=== PATIENT | male | born 1950 | race Caucasian/White ===

== ENCOUNTER 2019-07-28 13:42 | Emergency (ER) | payer OTHER ==
[2019-07-28 14:34] LABS: Absolute Lymphocytes (CBC) 0.7 K/uL (0.7-4.9); Basophils % 0.9 % (0-1.3); Hematocrit 38.1 % (39.6-49.0); MPV 7.2 fL (7.6-11.3); RBC Red Blood Cell Count 4.13 M/uL (4.33-5.43)
[2019-07-28 14:37] LABS: Protime INR 1.05
[2019-07-28] MEDS ORDERED: CLOPIDOGREL 75 MG TABLET ONE (14:37)
[2019-07-28] MEDS ORDERED: NA CHLORIDE 0.9% 1,000 ML ONE (14:37)
[2019-07-28] MEDS ORDERED: ASPIRIN EC 81 MG TAB PO ONE (14:37)
[2019-07-28] MEDS ORDERED: FOLIC ACID 5 MG/ML VIAL ONE (14:38)
--- NOTE | 2019-07-28 14:39 | ER ---
Nurse's Notes [facility] Name: Christian Dave Age: 69 yrs Sex: Male : 1950 Arrival Date: 07/28/2019 Time: 13:45 Bed 20 Private MD: Unknown, Unknown Diagnosis: Headache;Aphasia;Transient cerebral ischemic attack, unspecified;Essential (primary) hypertension Presentation: 07/28 14:00 Presenting complaint: Sudden headache, numbness of tongue and lips, and slurred speech hb while eating lunch at 1230 today. Now c/o tingling of tongue and headache. Transition of care: patient was not received from another setting of care. Onset of symptoms was July 28, 2019 at 12:30. Risk Assessment: Do you want to hurt yourself or someone else? Patient reports no desire to harm self or others. Initial Sepsis Screen: Does the patient meet any 2 criteria? No. Patient's initial sepsis screen is negative. Does the patient have a suspected source of infection? No. Patient's initial sepsis screen is negative. Care prior to arrival: None. 14:00 Method Of Arrival: Ambulatory hb 14:00 Acuity: EDDIE 3 hb Triage Assessment: 16:51 Headache History: The patient has had previous headaches and this one is similar to mg2 previous episodes. General: Appears in no apparent distress. comfortable, Behavior is calm, cooperative. Pain: Also complains of no other associated symptoms. Historical: - Allergies: 14:06 No Known Allergies; hb - Home Meds: 14:06 Aspirin Oral [Active]; gabapentin 300 mg oral cap 1 cap 3 times per day [Active]; hb escitalopram oxalate 10 mg oral tab 1 tab once daily [Active]; Novolin 70/30 100 unit/mL (70-30) subcutaneous susp [Active]; meloxicam oral oral [Active]; tamsulosin 0.4 mg oral cp24 [Active]; fenofibrate 120 mg oral tab [Active]; lisinopril 10 mg Oral tab [Active]; - PMHx: 14:06 Hypertension; hb - Immunization history:: Adult Immunizations up to date. - Social history:: Smoking status: Patient/guardian denies using tobacco. - Ebola Screening: : No symptoms or risks identified at this time. - Family history:: not pertinent. Screenin:35 Abuse screen: Denies threats or abuse. Denies injuries from another. Nutritional mg2 screening: No deficits noted. Tuberculosis screening: No symptoms or risk factors identified. Fall Risk IV access (20 points). 14:44 Patient has been NPO before screening. The patient is alert, able to follow commands. mg2 The patient does not exhibit slurred or garbled speech The patient is not exhibiting difficulty speaking. The patient does not exhibit difficulty understanding words. The patient is able to swallow own secretions with no drooling or need for suction. Patient tolerated one teaspoon of water. No drooling, immediate coughing, gurgling, or clearing of the throat was noted. The patient tolerated 90mL of water. No drooling, immediate coughing, gurgling, or clearing of the throat was noted. The patient passed the bedside swallow screening. Oral medications may be given as ordered. Contact Physician for further diet orders. Provider notified of bedside swallow screening results: Blue Hernandez MD. Assessment: 14:07 Reassessment: CODE STROKE CALLED. PT TO CT WITH CONSTANTINO HERNANDEZ. hb 14:11 Reassessment: patient sent to ct scan via wheelchair. mg2 14:30 Reassessment: seen by ed provider. mg2 14:31 Reassessment: ekg done. mg2 14:32 Reassessment: bedside cxr done. mg2 14:56 General: Appears in no apparent distress. comfortable, Behavior is calm, cooperative. mg2 Pain: Complains of pain in right jew, head Pain does not radiate. Pain currently is 5 out of 10 on a pain scale. Quality of pain is described as aching, Pain began gradually, 2 hours ago. Is intermittent. Neuro: Level of Consciousness is awake, alert, obeys commands, Oriented to person, place, time, situation. Cardiovascular: Capillary refill < 3 seconds Patient's skin is warm and dry. Respiratory: Airway is patent Respiratory effort is even, unlabored, Respiratory pattern is regular, symmetrical. GI: No signs and/or symptoms were reported involving the gastrointestinal system. : No signs and/or symptoms were reported regarding the genitourinary system. EENT: Reports numbness and tingling in the tongue \T\ 1230, now resolved. . Derm: Skin is intact, is healthy with good turgor, Skin is pink, warm \T\ dry. normal. Musculoskeletal: Circulation, motion, and sensation intact. Capillary refill < 3 seconds. 16:03 Reassessment: report called to MARY trejo of [facility]. mg2 16:54 Reassessment: patient informed about the waiting time for ems to come and pick her up. mg2 17:29 Reassessment: patient complained of headache and blood pressure is elevated. provider mg2 informed and addressed. 17:59 Reassessment: report given to [facility]. patient in good condition. iv in place. mg2 Vital Signs: 14:02 BP 183 / 75; Pulse 66; Resp 16; Temp 98.2; Pulse Ox 100% on R/A; Weight 122.47 kg; hb Height 5 ft. 8 in. (172.72 cm); Pain 5/10; 14:34 BP 151 / 78; Pulse 68; Resp 17; Pulse Ox 96% on R/A; Pain 0/10; mg2 16:50 BP 169 / 72; Pulse 62; Resp 18; Pulse Ox 100% on R/A; mg2 17:12 Pulse 62; Resp 18; Pulse Ox 97% on R/A; mg2 17:27 BP 182 / 87; Pulse 63; Resp 18; Pulse Ox 100% on R/A; mg2 14:02 Body Mass Index 41.05 (122.47 kg, 172.72 cm) hb NIH Stroke Scale Scores: 14:20 NIHSS Score: 0 mg2 14:39 NIHSS Score: 0 [facility] ED Course: 13:45 Patient arrived in ED. ag5 13:45 Unknown, Unknown is Private Physician. ag5 13:53 Patient's name was called from ER lobby. No response. hb 14:02 Triage completed. hb 14:06 Arm band placed on. hb 14:16 Blue Hernandez MD is Attending Physician. scott 14:25 CT Stroke Brain w/o Contrast In Process Unspecified. EDMS 14:25 Inserted saline lock: 20 gauge in right forearm, using aseptic technique. mg2 14:32 Kane Fox, MARY is Primary Nurse. mg2 14:34 No provider procedures requiring assistance completed. mg2 14:48 EKG done, by criminal records technician. reviewed by Blue Hernandez MD. sm3 14:59 Patient has correct armband on for positive identification. monitor and storage bin tender on. Pulse mg2 ox on. NIBP on. Door closed. Warm blanket given. 15:00 initiated a transfer with Eliane Jim RN from the [facility] transfer center. eb 15:[address] Kirkland the neurologist ammonia box tender for [facility] with Dr. Hernandez for eb patient transfer consultation. 15:09 CT Head Angio In Process Unspecified. EDMS 15:35 administrative approval given by Eliane Jim RN/ Patient has been accepted to [facility] bed 2442/ Dr. Echavarria has accepted the patient in transfer. report to be called to the transfer center at [phone]. 15:36 Stroke CXR 1 View In Process Unspecified. EDMS 17:30 Assisted to bathroom. mg2 18:00 Patient transferred, IV remains in place. mg2 Administered Medications: 14:44 Drug: NS 0.9% 1000 ml Route: IV; Rate: 1 bolus; Site: right forearm; mg2 15:52 Follow up: Response: No adverse reaction; IV Status: Completed infusion; IV Intake: mg2 1000ml 14:44 Drug: foLIC Acid 1 mg Route: IVPB; Site: right forearm; mg2 15:51 Follow up: Response: No adverse reaction; IV Status: Completed infusion mg2 14:44 Drug: Aspirin 81 mg Route: PO; mg2 15:51 Follow up: Response: No adverse reaction mg2 14:44 Drug: PlaVIX 75 mg Route: PO; mg2 15:51 Follow up: Response: No adverse reaction mg2 16:42 Drug: Lipitor 40 mg Route: PO; mg2 17:00 Follow up: Response: No adverse reaction mg2 17:27 Drug: Lopressor 25 mg Route: PO; mg2 17:35 Follow up: Response: No adverse reaction mg2 17:28 Drug: Tylenol 650 mg Route: PO; mg2 17:40 Follow up: Response: No adverse reaction mg2 17:29 Not Given (out of stock): Zocor 80 mg PO once mg2 Point of Care Testing: Blood Glucose: 14:30 Blood Glucose: 108 mg/dL; mg2 Ranges: Intake: 15:52 IV: 1000ml; Total: 1000ml. mg2 Outcome: 14:39 ER care complete, transfer ordered by scott 18:03 Transferred by ground EMS to [facility], Transfer form completed. mg2 18:03 Condition: stable 18:03 Instructed on the need for transfer, Demonstrated understanding of instructions. 18:04 Patient left the ED. mg2 NIH Stroke Scale - NIH Stroke Score Date: 07/28/2019 Time: 14:20 Total Score = 0 1a. Level of Consciousness (LOC) - 0(Alert) 1b. Level of Consciousness (LOC) (Year \T\ Age) - 0(Both) 1c. LOC Commands (Open \T\ Closes Eyes/Dirt Bike Mechanic) - 0(Both) 2. Best Gaze (Lateral Gaze Paresis) - 0(Normal) 3. Visual Field Loss - 0(No visual loss) 4. Facial Palsy - 0(Normal) 5a. Left Arm: Motor (10-second hold) - 0(No drift) 5b. Right Arm: Motor (10-second hold) - 0(No drift) 6a. Left Leg: Motor (5-second hold - always test supine) - 0(No drift) 6b. Right Leg: Motor (5-second hold - always test supine) - 0(No drift) 7. Limb Ataxia (finger/nose \T\ heel/phelps - test with eyes open) - 0(Absent) 8. Sensory Loss (pinprick arms/legs/face) - 0(Normal) 9. Best Language: Aphasia (description/naming/reading) - 0(No aphasia) 10. Dysarthria (speech clarity - read or repeat words) - 0(Normal) 11. Extinction and Inattention (visual/tactile/auditory/spatial/personal) - 0(No abnormality) Initials: [facility] [place] NIH Stroke Scale - NIH Stroke Score Date: 07/28/2019 Time: 14:39 Total Score = 0 1a. Level of Consciousness (LOC) - 0(Alert) 1b. Level of Consciousness (LOC) (Year \T\ Age) - 0(Both) 1c. LOC Commands (Open \T\ Closes Eyes/Dirt Bike Mechanic) - 0(Both) 2. Best Gaze (Lateral Gaze Paresis) - 0(Normal) 3. Visual Field Loss - 0(No visual loss) 4. Facial Palsy - 0(Normal) 5a. Left Arm: Motor (10-second hold) - 0(No drift) 5b. Right Arm: Motor (10-second hold) - 0(No drift) 6a. Left Leg: Motor (5-second hold - always test supine) - 0(No drift) 6b. Right Leg: Motor (5-second hold - always test supine) - 0(No drift) 7. Limb Ataxia (finger/nose \T\ heel/phelps - test with eyes open) - 0(Absent) 8. Sensory Loss (pinprick arms/legs/face) - 0(Normal) 9. Best Language: Aphasia (description/naming/reading) - 0(No aphasia) 10. Dysarthria (speech clarity - read or repeat words) - 0(Normal) 11. Extinction and Inattention (visual/tactile/auditory/spatial/personal) - 0(No abnormality) Initials: scott Signatures: Dispatcher [employer] Blue Childs MD MD cha Baxter, Heather RN RN hb Maria D Richmond Michele, RN RN mg2 Juana Vickers3 Humphrey Bain 5 Corrections: (The following items were deleted from the chart) 17:28 16:48 Zocor 80 mg PO mg2 mg2
--- NOTE | 2019-07-28 14:40 | EDPHYS ---
Physician Documentation [facility] Name: Christian Dave Age: 69 yrs Sex: Male : 1950 Arrival Date: 07/28/2019 Time: 13:45 Bed 20 Private MD: Unknown, Unknown ED Physician Blue Hernandez HPI: 07/28 14:31 This 69 yrs old Male presents to ER via Ambulatory with complaints of scott Numbness Of Mouth, Headache, High Blood Pressure. 14:31 This 69 yrs old Male presents to ER via Ambulatory with complaints of scott Numbness Of Mouth, Headache, High Blood Pressure. 14:31 The patient complains of pain to the right buddhism. scott 14:32 The patient describes the headache as aching. Onset: The symptoms/episode scott began/occurred 2 hour(s) ago. The patient's problem is reported as. The patient's problem is reported as dysphasia. Onset: The symptoms/episode began/occurred 2 hour(s) ago. Duration: This was a single incident. Context: the episode(s) was witnessed, by family, . The symptoms are alleviated by nothing. The symptoms are aggravated by nothing. Associated signs and symptoms: The patient has no apparent associated signs or symptoms. Historical: - Allergies: 14:06 No Known Allergies; hb - Home Meds: 14:06 Aspirin Oral [Active]; gabapentin 300 mg oral cap 1 cap 3 times per day [Active]; hb escitalopram oxalate 10 mg oral tab 1 tab once daily [Active]; Novolin 70/30 100 unit/mL (70-30) subcutaneous susp [Active]; meloxicam oral oral [Active]; tamsulosin 0.4 mg oral cp24 [Active]; fenofibrate 120 mg oral tab [Active]; lisinopril 10 mg Oral tab [Active]; - PMHx: 14:06 Hypertension; hb - Immunization history:: Adult Immunizations up to date. - Social history:: Smoking status: Patient/guardian denies using tobacco. - Ebola Screening: : No symptoms or risks identified at this time. - Family history:: not pertinent. ROS: 14:32 Constitutional: Negative for fever, chills, and weight loss, Eyes: Negative for injury, scott pain, redness, and discharge, ENT: Negative for injury, pain, and discharge, Neck: Negative for injury, pain, and swelling, Cardiovascular: Negative for chest pain, palpitations, and edema, Respiratory: Negative for shortness of breath, cough, wheezing, and pleuritic chest pain, Abdomen/GI: Negative for abdominal pain, nausea, vomiting, diarrhea, and constipation, Back: Negative for injury and pain, : Negative for injury, bleeding, discharge, and swelling, MS/Extremity: Negative for injury and deformity, Skin: Negative for injury, rash, and discoloration, Psych: Negative for depression, anxiety, suicide ideation, homicidal ideation, and hallucinations, Allergy/Immunology: Negative for hives, rash, and allergies, Endocrine: Negative for neck swelling, polydipsia, polyuria, polyphagia, and marked weight changes, Hematologic/Lymphatic: Negative for swollen nodes, abnormal bleeding, and unusual bruising. 14:32 Neuro: Positive for headache, speech changes, of the . Exam: 14:32 Radiologist reports: na [facility] 14:32 Constitutional: This is a well developed, well nourished patient who is awake, alert, and in no acute distress. Head/Face: Normocephalic, atraumatic. Eyes: Pupils equal round and reactive to light, extra-ocular motions intact. Lids and lashes normal. Conjunctiva and sclera are non-icteric and not injected. Cornea within normal limits. Periorbital areas with no swelling, redness, or edema. ENT: Nares patent. No nasal discharge, no septal abnormalities noted. Tympanic membranes are normal and external auditory canals are clear. Oropharynx with no redness, swelling, or masses, exudates, or evidence of obstruction, uvula midline. Mucous membranes moist. Neck: Trachea midline, no thyromegaly or masses palpated, and no cervical lymphadenopathy. Supple, full range of motion without nuchal rigidity, or vertebral point tenderness. No Meningismus. Chest/axilla: Normal chest wall appearance and motion. Nontender with no deformity. No lesions are appreciated. Cardiovascular: Regular rate and rhythm with a normal S1 and S2. No gallops, murmurs, or rubs. Normal PMI, no JVD. No pulse deficits. Respiratory: Lungs have equal breath sounds bilaterally, clear to auscultation and percussion. No rales, rhonchi or wheezes noted. No increased work of breathing, no retractions or nasal flaring. Abdomen/GI: Soft, non-tender, with normal bowel sounds. No distension or tympany. No guarding or rebound. No evidence of tenderness throughout. Back: No spinal tenderness. No costovertebral tenderness. Full range of motion. Male : Normal genitalia with no discharge or lesions. Skin: Warm, dry with normal turgor. Normal color with no rashes, no lesions, and no evidence of cellulitis. MS/ Extremity: Pulses equal, no cyanosis. Neurovascular intact. Full, normal range of motion. Neuro: Awake and alert, GCS 15, oriented to person, place, time, and situation. Cranial nerves II-XII grossly intact. Motor strength 5/5 in all extremities. Sensory grossly intact. Cerebellar exam normal. Normal gait. Psych: Awake, alert, with orientation to person, place and time. Behavior, mood, and affect are within normal limits. Vital Signs: 14:02 BP 183 / 75; Pulse 66; Resp 16; Temp 98.2; Pulse Ox 100% on R/A; Weight 122.47 kg; hb Height 5 ft. 8 in. (172.72 cm); Pain 5/10; 14:34 BP 151 / 78; Pulse 68; Resp 17; Pulse Ox 96% on R/A; Pain 0/10; mg2 16:50 BP 169 / 72; Pulse 62; Resp 18; Pulse Ox 100% on R/A; mg2 17:12 Pulse 62; Resp 18; Pulse Ox 97% on R/A; mg2 17:27 BP 182 / 87; Pulse 63; Resp 18; Pulse Ox 100% on R/A; mg2 14:02 Body Mass Index 41.05 (122.47 kg, 172.72 cm) NIH Stroke Scale Scores: 14:20 NIHSS Score: 0 mg2 14:39 NIHSS Score: 0 scott MDM: 14:16 Patient medically screened. scott 14:34 Data reviewed: vital signs, nurses notes, lab test result(s), EKG, radiologic studies. scott 14:40 ED course: spmptoms fully resolved, not a tpa candidate. scott 07/28 14:18 Order name: Basic Metabolic Panel; Complete Time: 16:05 scott 07/28 14:18 Order name: CBC with Diff; Complete Time: 14:39 scott 07/28 14:18 Order name: Protime (+inr); Complete Time: 14:39 scott 07/28 14:18 Order name: Ptt, Activated; Complete Time: 14:39 07/28 14:18 Order name: LFT's; Complete Time: 16:05 [facility] 07/28 14:18 Order name: Magnesium; Complete Time: 16:05 [facility] 07/28 14:18 Order name: CT Stroke Brain w/o Contrast 07/28 14:18 Order name: Stroke CXR 1 View 07/28 14:18 Order name: NT PRO-BNP; Complete Time: 16:05 scott 07/28 14:18 Order name: Troponin (emerg Dept Use Only); Complete Time: 16:05 scott 07/28 14:18 Order name: CT Head Angio 07/28 14:18 Order name: EKG; Complete Time: 14:19 [facility] 07/28 14:18 Order name: Accucheck; Complete Time: 14:33 [facility] 07/28 14:18 Order name: Cardiac monitoring; Complete Time: 14:33 [facility] 07/28 14:18 Order name: EKG - Nurse/Tech; Complete Time: 14:33 scott 07/28 14:18 Order name: IV Saline Lock; Complete Time: 14:33 [facility] 07/28 14:18 Order name: Labs collected and sent; Complete Time: 14:33 [facility] 07/28 14:18 Order name: NPO; Complete Time: 14:33 [facility] 07/28 14:18 Order name: O2 Per Protocol; Complete Time: 14:33 [facility] 07/28 14:18 Order name: O2 Sat Monitoring; Complete Time: 14:34 07/28 14:18 Order name: Stroke Swallow Screen; Complete Time: 14:45 [facility] Administered Medications: 14:44 Drug: NS 0.9% 1000 ml Route: IV; Rate: 1 bolus; Site: right forearm; mg2 15:52 Follow up: Response: No adverse reaction; IV Status: Completed infusion; IV Intake: mg2 1000ml 14:44 Drug: foLIC Acid 1 mg Route: IVPB; Site: right forearm; mg2 15:51 Follow up: Response: No adverse reaction; IV Status: Completed infusion mg2 14:44 Drug: Aspirin 81 mg Route: PO; mg2 15:51 Follow up: Response: No adverse reaction mg2 14:44 Drug: PlaVIX 75 mg Route: PO; mg2 15:51 Follow up: Response: No adverse reaction mg2 16:42 Drug: Lipitor 40 mg Route: PO; mg2 17:00 Follow up: Response: No adverse reaction mg2 17:27 Drug: Lopressor 25 mg Route: PO; mg2 17:35 Follow up: Response: No adverse reaction mg2 17:28 Drug: Tylenol 650 mg Route: PO; mg2 17:40 Follow up: Response: No adverse reaction mg2 17:29 Not Given (out of stock): Zocor 80 mg PO once mg2 Point of Care Testing: Blood Glucose: 14:30 Blood Glucose: 108 mg/dL; mg2 Ranges: Critical Glucose Levels:Adult <50 mg/dl or >400 mg/dl <40 mg/dl or >180 mg/dl Disposition: 07/28/19 14:39 Transfer ordered to [facility]. Diagnosis are Headache, Aphasia, Transient cerebral ischemic attack, unspecified, Essential (primary) hypertension. - Reason for transfer: Higher level of care. - Accepting physician is to [facility], neuro. - Condition is Fair. - Problem is new. - Symptoms have improved. NIH Stroke Scale - NIH Stroke Score Date: 07/28/2019 Time: 14:20 Total Score = 0 1a. Level of Consciousness (LOC) - 0(Alert) 1b. Level of Consciousness (LOC) (Year \T\ Age) - 0(Both) 1c. LOC Commands (Open \T\ Closes Eyes/Watch Engine Operator) - 0(Both) 2. Best Gaze (Lateral Gaze Paresis) - 0(Normal) 3. Visual Field Loss - 0(No visual loss) 4. Facial Palsy - 0(Normal) 5a. Left Arm: Motor (10-second hold) - 0(No drift) 5b. Right Arm: Motor (10-second hold) - 0(No drift) 6a. Left Leg: Motor (5-second hold - always test supine) - 0(No drift) 6b. Right Leg: Motor (5-second hold - always test supine) - 0(No drift) 7. Limb Ataxia (finger/nose \T\ heel/phelps - test with eyes open) - 0(Absent) 8. Sensory Loss (pinprick arms/legs/face) - 0(Normal) 9. Best Language: Aphasia (description/naming/reading) - 0(No aphasia) 10. Dysarthria (speech clarity - read or repeat words) - 0(Normal) 11. Extinction and Inattention (visual/tactile/auditory/spatial/personal) - 0(No abnormality) Initials: mg2 NIH Stroke Scale - NIH Stroke Score Date: 07/28/2019 Time: 14:39 Total Score = 0 1a. Level of Consciousness (LOC) - 0(Alert) 1b. Level of Consciousness (LOC) (Year \T\ Age) - 0(Both) 1c. LOC Commands (Open \T\ Closes Eyes/Watch Engine Operator) - 0(Both) 2. Best Gaze (Lateral Gaze Paresis) - 0(Normal) 3. Visual Field Loss - 0(No visual loss) 4. Facial Palsy - 0(Normal) 5a. Left Arm: Motor (10-second hold) - 0(No drift) 5b. Right Arm: Motor (10-second hold) - 0(No drift) 6a. Left Leg: Motor (5-second hold - always test supine) - 0(No drift) 6b. Right Leg: Motor (5-second hold - always test supine) - 0(No drift) 7. Limb Ataxia (finger/nose \T\ heel/phelps - test with eyes open) - 0(Absent) 8. Sensory Loss (pinprick arms/legs/face) - 0(Normal) 9. Best Language: Aphasia (description/naming/reading) - 0(No aphasia) 10. Dysarthria (speech clarity - read or repeat words) - 0(Normal) 11. Extinction and Inattention (visual/tactile/auditory/spatial/personal) - 0(No abnormality) Initials: [facility] Signatures: Dispatcher [employer] EDBlue Coleman MD MD cha Baxter, Heather, RN RN Kane Fox RN RN mg2 Corrections: (The following items were deleted from the chart) 14:41 14:39 07/28/2019 14:39 Transfer ordered to [facility]. scott Diagnosis is Headache; Aphasia; Transient cerebral ischemic attack, unspecified. Reason for transfer: Higher level of care. Accepting physician is to [facility], neuro. Condition is Fair. Problem is new. Symptoms have improved. scott 18:04 14:41 07/28/2019 14:39 Transfer ordered to [facility]. mg2 Diagnosis is Headache; Aphasia; Transient cerebral ischemic attack, unspecified; Essential (primary) hypertension. Reason for transfer: Higher level of care. Accepting physician is to [facility], neuro. Condition is Fair. Problem is new. Symptoms have improved. scott
[2019-07-28 14:52] LABS: Albumin 3.6 g/dL (3.4-5.0); Bilirubin Direct 0.1 mg/dL (0-0.2); Bilirubin Total 0.4 mg/dL (0.2-1.0); Magnesium 2.1 mg/dL (1.8-2.4); Potassium 3.5 mmol/L (3.5-5.1); Protein, Total 7.3 g/dL (6.4-8.2); Troponin (Emerg Dept Use Only) 0.06 ng/mL (0.0-0.045)
[2019-07-28] MEDS ORDERED: ATORVASTATIN 40 MG TAB PO ONE (17:00)
[2019-07-28] MEDS ORDERED: ACETAMINOPHEN 325 MG TABLET ONE (17:24)
[2019-07-28] MEDS ORDERED: METOPROLOL TAR 25 MG TAB ONE (17:24)
--- NOTE | 2019-07-28 19:54 | RAD REPORT ---
EXAM DESCRIPTION: CT HEAD W/O CONTRAST CLINICAL HISTORY: Altered mental status, dizziness, stroke like symptoms COMPARISON: None. TECHNIQUE: Axial non-contrast 5 mm thick images of the head were obtained with sagittal and coronal reformatted images generated and reviewed. This exam was performed according to our departmental dose-optimization program, which includes automated exposure control, adjustment of the mA and/or kV according to patient size and/or use of iterative reconstruction technique. FINDINGS: No intracranial hemorrhage is present. No acute cortical based infarction is seen. No mass affect, edema or shift of midline structures. Moderate severity atrophy and chronic ischemia changes are present. The ventricles are in proportion to volume loss. Mastoid air cells and partially visualized paranasal sinuses are clear. IMPRESSION: 1. No hemorrhage acute intracranial finding identifiable. 2. Moderate severity atrophy and chronic ischemic change. 3. Chronic ischemic change can mask non-hemorrhagic acute CVA 4. Findings telephone to the referring clinician 1425 hours.
[2019-07-28 21:13] VITALS: TEMP 98.2
[2019-07-28 21:18] VITALS: BP 182/87; O2SAT 100
--- NOTE | 2019-07-28 23:09 | RAD REPORT ---
EXAM DESCRIPTION: Shameka Single View07/28/2019 7:18 pm CLINICAL HISTORY: cough COMPARISON: none FINDINGS: The lungs appear clear of acute infiltrate. The heart is mildly enlarged IMPRESSION: No acute abnormalities displayed
--- NOTE | 2019-07-29 04:39 | EKG ---
Test Date: 2019-07-28 Test Time: 14:31:23 Neurology Technologist: IWLEY MEASUREMENT RESULTS: Intervals: Rate: 67 [place]: 172 QRSD: 140 QT: 448 QTc: 473 Wendel: P: 88 [place]: 172 QRS: -18 T: 59 INTERPRETIVE STATEMENTS: Normal sinus rhythm Right bundle branch block Septal infarct, age undetermined Abnormal ECG No previous ECG available for comparison Electronically Signed On 07-29-19 04:38:39 CDT by Rubén Blanco
--- NOTE | 2019-07-31 16:33 | RAD REPORT ---
EXAM DESCRIPTION: CTHead angio07/28/2019 7:20 pm CLINICAL HISTORY: TIA COMPARISON: None TECHNIQUE: Due to technical issues at hospital this exam could not be dictated after completion. It is now available for dictation CT angiogram of the head was obtained. 3D MIPS reconstruction performed. All CT scans are performed using dose optimization technique as appropriate and may include automated exposure control or mA/KV adjustment according to patient size. FINDINGS: The basilar, internal carotid, anterior cerebral, middle cerebral and posterior cerebral a rteries are normal caliber. An aneurysm is not seen. A significant stenosis is not noted. IMPRESSION: Unremarkable CT angiogram head.
== END 2019-07-28 18:04 | disposition short-term general hospital (02) ==
LOC: ER 13:42
DX: G45.9 Transient cerebral ischemic attack, unspecified (principal); R47.01 Aphasia; I10 Essential (primary) hypertension; Z79.82 Long term (current) use of aspirin
CPT/HCPCS: 96365; 93005; 85025; 80048; 36415; 83735; 85610; 82962; 80076; 85730; 84484; 83880; 70496; 70450; 71045; 99285; Q9967; J7030